=== PATIENT | female | born 1940 | race Hispanic/Latino ===

== ENCOUNTER 2016-12-01 07:08 | Day surgery (SDC) | payer MEDICARE ==
[2016-11-23 09:02] VITALS: BMI 25.5
[2016-12-01] MEDS ORDERED: Propofol 10 mg/ml Inj (20 ML) ONE (09:04)
[2016-12-01] MEDS ORDERED: Midazolam 2 MG/2 ML VIAL ONE (09:04)
[2016-12-01] MEDS ORDERED: Sodium Chloride 0.9% 1,000 ML IV SCH (10:00)
[2016-12-01 10:57] VITALS: BP 122/63; PULSE 71; RESP 18; TEMP 97.6; O2SAT 99
== END 2016-12-01 11:21 | disposition home or self-care (01) ==
LOC: ENDO 07:08
PROVIDERS: ATTEND Internal Medicine Gastroenterology
DX: K31.7 Polyp of stomach and duodenum (principal); Z12.11 Encounter for screening for malignant neoplasm of colon; K21.9 Gastro-esophageal reflux disease without esophagitis; K64.8 Other hemorrhoids; K62.1 Rectal polyp; K29.50 Unspecified chronic gastritis without bleeding; I10 Essential (primary) hypertension; E78.5 Hyperlipidemia, unspecified
CPT/HCPCS: 43239; 45380; 88305; 88312; 88342; J2250; J2704; J3010; J7040 ×2

== ENCOUNTER 2017-12-14 07:28 | Day surgery (SDC) | payer MEDICARE ==
[2016-11-23 09:02] VITALS: BMI 25.5
[2017-12-14] MEDS ORDERED: Propofol 10 mg/ml Inj (20 ML) ONE (08:24)
[2017-12-14] MEDS ORDERED: Lidocaine 2 GM Vial 2 GM/50 ML VIAL IV ONE (08:25)
[2017-12-14] MEDS ORDERED: Sodium Chloride 0.9% 1,000 ML IV SCH (09:30)
[2017-12-14 10:03] VITALS: BP 131/67; PULSE 81; RESP 18; TEMP 97.8; O2SAT 98
== END 2017-12-14 11:04 | disposition home or self-care (01) ==
LOC: ENDO 07:28
PROVIDERS: ATTEND Internal Medicine Gastroenterology
DX: K22.70 Barrett's esophagus without dysplasia (principal); K29.50 Unspecified chronic gastritis without bleeding; K29.80 Duodenitis without bleeding; D50.9 Iron deficiency anemia, unspecified; K44.9 Diaphragmatic hernia without obstruction or gangrene; I10 Essential (primary) hypertension; E78.00 Pure hypercholesterolemia, unspecified
CPT/HCPCS: 43239; 88305; 88312; 88342; J2704; J7030; J7040

== ENCOUNTER 2018-10-18 09:35 | Day surgery (SDC) | payer MEDICARE ==
[2018-10-10 15:57] VITALS: BMI 25.4
[2018-10-18] MEDS ORDERED: Propofol 10 mg/ml Inj (20 ML) ONE (12:22)
[2018-10-18] MEDS ORDERED: Sodium Chloride 0.9% 1,000 ML IV SCH (12:30)
[2018-10-18 14:34] VITALS: BP 147/77; PULSE 81; RESP 18; TEMP 97.5; O2SAT 98
== END 2018-10-18 14:20 | disposition home or self-care (01) ==
LOC: ENDO 09:35
PROVIDERS: ATTEND Internal Medicine Gastroenterology
DX: K21.0 Gastro-esophageal reflux disease with esophagitis (principal); K29.50 Unspecified chronic gastritis without bleeding; K26.9 Duodenal ulcer, unspecified as acute or chronic, without hemorrhage or perforation; K44.9 Diaphragmatic hernia without obstruction or gangrene; K29.80 Duodenitis without bleeding
CPT/HCPCS: 43239; 88305; 88342; J2001; J2704; J7030